=== PATIENT | female | born 1965 | race Caucasian/White ===

== ENCOUNTER 2017-06-18 10:26 | Emergency (ER) | payer BC, OTHER ==
[~2017-06-18] VITALS: Ht 157.5 cm; Wt 88.0 kg
[~2017-06-18 10:26] MED LIST: ACET500T98 PO; ATEN50TA PO; BENA20TA48 PO; HYDR25TA6 PO
[2017-06-18 10:28] VITALS: Ht 157.5 cm; Wt 88.0 kg
[2017-06-18 11:29] LABS: BASOPHILS % 0.5 % (0.0-2.0); EOSINOPHILS # 0.1 10^3/ul (0.0-0.5); EOSINOPHILS % 1.1 % (0.0-7.0); HEMATOCRIT 42.1 % (37.0-47.0); HEMOGLOBIN 13.9 g/dl (12.0-16.0); LYMPHOCYTES % 40.6 % (15.0-51.0); MEAN CORPUSCULAR HEMOGLOBIN 29.4 pg (29.0-33.0); MEAN PLATELET VOLUME 11.2 fl (7.4-10.4); MONOCYTE # 0.7 10^3/ul (0.3-0.9); MONOCYTES % 9.2 % (0.0-11.0); NEUTROPHILS % 48.5 % (39.0-77.0); PLATELET COUNT 217 10^3/UL (140-415); RED BLOOD COUNT 4.73 10^6/ul (4.20-5.40); WHITE BLOOD COUNT 7.4 10^3/ul (4.8-10.8)
--- NOTE | 2017-06-18 11:30 | RADRPT ---
PROCEDURE: Chest x-ray CLINICAL INDICATION: Chest pain TECHNIQUE: Chest single view COMPARISON: 08/30/2008 FINDINGS: The heart is normal in size. The pulmonary vessels are normal in caliber. The lungs are clear. Th e costophrenic angles are sharp. The visualized bony thorax is unremarkable. IMPRESSION: No acute cardiopulmonary disease. RPTAT: HH .Mane Maria MD, Date Time Electronically viewed and signed by .Mane Maria MD, on 06/18/2017 11:30 .W/
[2017-06-18 11:51] LABS: ALANINE AMINOTRANSFERASE 28 IU/L (13-69); ALBUMIN 4.1 g/dl (3.3-4.9); ALBUMIN/GLOBULIN RATIO 1.46; ALKALINE PHOSPHATASE 104 IU/L (42-121); ANION GAP 10 (8-16); ASPARTATE AMINO TRANSFERASE 22 IU/L (15-46); BILIRUBIN,INDIRECT 0.6 mg/dl (0-1.1); BILIRUBIN,TOTAL 0.6 mg/dl (0.2-1.3); BLOOD UREA NITROGEN 12 mg/dl (7-20); CALCIUM 9.6 mg/dl (8.4-10.2); CARBON DIOXIDE 30 mmol/L (21-31); CHLORIDE 103 mmol/L (97-110); CREATININE 0.61 mg/dl (0.44-1.00); GLUCOSE 105 mg/dl (70-220); POTASSIUM 4.3 mmol/L (3.5-5.1); SODIUM 139 mmol/L (135-144); TOTAL PROTEIN 6.9 g/dl (6.1-8.1)
[2017-06-18 12:09] LABS: TROPONIN-I < 0.012 ng/ml (0.00-0.12)
--- NOTE | 2017-06-18 12:42 | ERD ---
ER Documentation Chief Complaint Date/Time DATE: 06/18/17 TIME: 12:40 Chief Complaint chest pain for 2 months worse today HPI 52-year-old female presents the emergency department with a sharp stabbing localized chest discomfort in the left upper chest wall. Patient has had this pain on and off for the last 2 months. Patient has no shortness of breath, fevers, chills, sputum production. Patient also reports no significant exertional component to the pain. Patient was seen by her primary care doctor also told her she had a "inflamed liver" the patient was referred here to the emergency department for evaluation. Currently, the patient reports that she is not having any discomfort. ROS All systems reviewed and are negative except as per history of present illness. Medications Home Meds Reported Medications Atenolol* (Atenolol*) 50 Mg Tablet, 50 MG PO DAILY 11/23/12 Discontinued Reported Medications Acetaminophen (Tylenol) 500 Mg Tab, 1000 MG PO Q6 11/23/12 Benazepril Hcl* (Benazepril Hcl*) 20 Mg Tablet, 20 MG PO DAILY 10/21/12 Hydrochlorothiazide (Hydrochlorothiazide) 25 Mg Tablet, 25 MG PO DAILY 10/21/12 Allergies Allergies: Coded Allergies: No Known Drug Allergy (Verified Allergy, Unknown, 11/23/12) PMhx/Soc History of Surgery: Yes (OVARIAN SURGERY) Anesthesia Reaction: No Hx Neurological Disorder: No Hx Respiratory Disorders: No Hx Cardiac Disorders: No Hx Psychiatric Problems: No Hx Miscellaneous Medical Probl: Yes (HTN) Hx Alcohol Use: No Hx Substance Use: No Hx Tobacco Use: No Smoking Status: Never smoker FmHx Noncontributory for chief complaint with no history of cardiac disease Physical Exam Vitals Vital Signs Date Time Temp Pulse Resp B/P Pulse Ox O2 Delivery O2 Flow Rate FiO2 06/18/17 10:28 97.1 70 18 170/80 98 Physical Exam GENERAL: The patient is well developed and appropriate for usual state of health in no apparent distress HEENT: Pupils equal, round, and reactive to light. EOMI. There is no scleral icterus. NECK: C-spine is soft and supple, there is no meningismus. There is no cervical lymphadenopathy. LUNGS: Clear to auscultation bilaterally. There are no rales, wheezes or rhonchi. HEART: Regular rate and rhythm, no murmurs, clicks, rubs or gallops. ABDOMEN: Soft, non-tender, non-distended. There are bowel sounds in all four quadrants. No rebound or guarding. EXTREMITIES: There is no peripheral cyanosis or edema. No focal swelling or erythema. NEURO: The patient moves all four extremities with 5/5 strength. Cranial nerves II - XII are intact. Normal gait. Alert and oriented SKIN: There is no apparent rash or petechiae. HEME/LYMPHATIC: There is no evidence of excessive bruising or lymphedema. PSYCHIATRIC: The patient does not appear anxious or depressed. Result Diagram: 06/18/17 1112 06/18/17 1112 Results 24 hrs Laboratory Tests Test 06/18/17 11:12 White Blood Count 7.410^3/ul Red Blood Count 4.7310^6/ul Hemoglobin 13.9g/dl Hematocrit 42.1% Mean Corpuscular Volume 89.0fl Mean Corpuscular Hemoglobin 29.4pg Mean Corpuscular Hemoglobin Concent 33.0g/dl Red Cell Distribution Width 12.0% Platelet Count 48771^3/UL Mean Platelet Volume 11.2fl Neutrophils % 48.5% Lymphocytes % 40.6% Monocytes % 9.2% Eosinophils % 1.1% Basophils % 0.5% Nucleated Red Blood Cells % 0.0/100WBC Neutrophils # (Manual) 3.610^3/ul Lymphocytes # 3.010^3/ul Monocytes # 0.710^3/ul Eosinophils # 0.110^3/ul Basophils # 0.010^3/ul Nucleated Red Blood Cells # 0.010^3/ul Sodium Level 139mmol/L Potassium Level 4.3mmol/L Chloride Level 103mmol/L Carbon Dioxide Level 30mmol/L Anion Gap 10 Blood Urea Nitrogen 12mg/dl Creatinine 0.61mg/dl Glucose Level 105mg/dl Calcium Level 9.6mg/dl Total Bilirubin 0.6mg/dl Direct Bilirubin 0.00mg/dl Indirect Bilirubin 0.6mg/dl Aspartate Amino Transf (AST/SGOT) 22IU/L Alanine Aminotransferase (ALT/SGPT) 28IU/L Alkaline Phosphatase 104IU/L Troponin I < 0.012ng/ml Total Protein 6.9g/dl Albumin 4.1g/dl Globulin 2.80g/dl Albumin/Globulin Ratio 1.46 Procedures/MDM Patient was taken to a room, seen and evaluated. Comfort measures were initiated. Diagnostic tests were ordered and reviewed. 3 LEAD RHYTHM STRIP: Normal sinus rhythm without ectopy EK lead EKG reviewed by myself: Normal Sinus Rhythm Normal Meredith and intervals No ST elevation, depression, or T wave inversion Impression: Normal EKG RADIOLOGY: reviewed with the radiologist REEVALUATION: Patient remained comfortable in appearance MEDICAL DECISION MAKING: Patient presents with chest pain of uncertain etiology. Differential diagnosis considered includes acute myocardial infarction , pulmonary embolism, as well as vascular and pulmonary concerns. I have reviewed the patients clinical risk factors, EKG, lab studies and imaging. At this time, given the patient's lack of significant risk factors, normal EKG, a normal troponin and a description of her discomfort that does not appear to be cardiac, I am comfortable to the patient is low risk for cardiac events and is appropriate for outpatient discharge. Departure Diagnosis: Primary Impression: Chest pain Condition: Stable Patient Instructions: Chest Pain, Uncertain Cause Additional Instructions: Please see your doctor with a copy of your results in the next 2 days. Return for any problems or concerns DARIANA LIND Jun 18, 2017 12:42
== END 2017-06-18 13:08 | disposition home or self-care (01) ==
LOC: E/R 10:26
DX: R07.89 Other chest pain (principal); I10 Essential (primary) hypertension
CPT/HCPCS: 36415; 71010; 80053; 84484; 85025; 93005

== ENCOUNTER 2019-06-20 12:40 | Emergency (ER) | payer BC, OTHER ==
[~2019-06-20] VITALS: Ht 170.2 cm; Wt 90.9 kg
[~2019-06-20 12:40] MED LIST changes: -ACET500T98 PO; +AMOX1TAB10 PO; -BENA20TA48 PO; -HYDR25TA6 PO; +PRED20TA PO
[2019-06-20 12:42] VITALS: Ht 170.2 cm; Wt 90.9 kg
[2019-06-20] MEDS ORDERED: KETOROLAC 15 MG INJ IV STA (13:03)
[2019-06-20] MEDS ORDERED: VANCOMYCIN 1 GM (PMX) 250 ML IVPB STA (13:03)
[2019-06-20] MEDS ORDERED: SOD CHLORIDE 0.9% 500 ML IV STA (13:03)
[2019-06-20] MEDS ORDERED: CEFTRIAXONE 1 GM/50 ML (PMX) 50 ML IVPB STA (13:03)
[2019-06-20] MEDS ORDERED: ACETAMINOPHEN 325 MG TAB PO ONE (13:30)
[2019-06-20 16:21] VITALS: BP 150/86; PULSE 65; RESP 17
== END 2019-06-20 16:19 | disposition home or self-care (01) ==
LOC: FTE 12:40
DX: H66.92 Otitis media, unspecified, left ear (principal); I10 Essential (primary) hypertension; J32.0 Chronic maxillary sinusitis
CPT/HCPCS: 70480; 80048; 81025; 85025; 96365; 96366; 96368; 96375; J0696; J1885; J3370; J7040; Z7502; Z7610

== ENCOUNTER 2019-06-29 18:53 | Emergency (ER) | payer OTHER ==
[~2019-06-29] VITALS: Ht 170.2 cm; Wt 92.5 kg
[~2019-06-29 18:53] MED LIST changes: +ACET-141 PO; +IBUP-1561 PO; +OFLO5DRO7 LEFT EAR
[2019-06-29 19:04] VITALS: BP 141/65; PULSE 72; RESP 18; Ht 170.2 cm; Wt 92.5 kg
== END 2019-06-29 19:52 | disposition home or self-care (01) ==
LOC: E/R 18:53
DX: H60.92 Unspecified otitis externa, left ear (principal); I10 Essential (primary) hypertension
CPT/HCPCS: 99283